=== PATIENT | female | born 1970 | race American Indian/Alaskan Native ===

== ENCOUNTER 2017-11-12 10:22 | Observation (INO) | payer BC ==
--- NOTE | 2017-11-09 09:52 | Anesthesia Consultation ---
Anesthesia Consult and Med Hx Date of service: 11/09/17 - Airway Anesthetic Teeth Evaluation: Good ROM Head & Neck: Adequate Mental/Hyoid Distance: Adequate Mallampati Class: Class II Intubation Access Assessment: Probably Good - Pulmonary Exam CTA: Yes - Cardiac Exam Cardiac Exam: RRR - Pre-Operative Health Status ASA Pre-Surgery Classification: ASA2 Proposed Anesthetic Plan: General Nerve Block: TAP - Pulmonary Hx Smoking: Yes (4 CIGS/DAY X 15 YRS) Hx Asthma: No Hx Sleep Apnea: No - Cardiovascular System Hx Hypertension: No - Central Nervous System Hx Seizures: No CVA: No Hx Psychiatric Problems: No - Hematic Hx Anemia: Yes - Other Systems Hx Alcohol Use: Yes (occas) Hx Cancer: No Hx Obesity: Yes
[2017-11-09 09:54] LABS: Basophils # (Auto) 0.1 K/mm3 (0.0-0.1); Basophils % (Auto) 1.1 % (0.0-1.8); Eosinophils % (Auto) 0.8 % (0.0-4.3); Hematocrit 36.7 % (30.3-42.9); Hemoglobin 12.6 gm/dl (10.1-14.3); Lymphocytes # (Auto) 2.1 K/mm3 (1.2-5.4); Lymphocytes % (Auto) 39.2 % (13.4-35.0); Mean Corpuscular HGB Conc 34 % (30-34); Mean Corpuscular Hemoglobin 30 pg (28-32); Mean Corpuscular Volume 88 fl (79-97); Monocytes # (Auto) 0.4 K/mm3 (0.0-0.8); Monocytes % (Auto) 6.8 % (0.0-7.3); Platelet Count 337 K/mm3 (140-440); Red Blood Count 4.19 M/mm3 (3.65-5.03); Red Cell Distribution Width 16.9 % (13.2-15.2)
[~2017-11-12 10:22] MED LIST: LACTATED RINGERS 1,000 ML IV SCH; NEURONTIN PO NR; PEPCID PO NR; SUBLIMAZE IV NR; VERSED IV NR
[2017-11-12] MEDS ORDERED: METHYLENE BLUE ONE (10:36)
[2017-11-12] MEDS ORDERED: NEOSPORIN GU IR ONE ×2 (10:36→14:06)
[2017-11-12] MEDS ORDERED: MARCAINE 0.25% INFILTRATI ONE (10:36)
[2017-11-12] MEDS ORDERED: GARAMYCIN 120 MG in NACL 0.9% 100 ML IV NR (11:15)
--- NOTE | 2017-11-12 11:15 | History and Physical Report ---
History of Present Illness Date of examination: 11/12/17 Chief complaint: Symptomatic uterine fibroids History of present illness: Pt is a 47yo BF LMP 10/30/17 presents for surgical evaluation and treatment of uterine fibroids. Pelvic u/s showed an enlarged uterus 10 x 8.7 x 6.5cm with 4 fibroids. Pt desires ovarian conservation and is therefore scheduled for Robotic Assisted Total Hysterectomy. 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 History: fibroids Social history: no significant social history, single Medications and Allergies Allergies Allergy/AdvReac Type Severity Reaction Status Date / Time Penicillins Allergy Hives Verified 11/02/17 13:50 Home Medications Medication Instructions Recorded Confirmed Last Taken Type Ibuprofen [Ibuprofen] 800 mg PO Q8H PRN 11/02/17 11/02/17 Unknown History Naproxen 500 mg PO Q12H PRN 11/02/17 11/02/17 Unknown History clonazePAM [ Klonopin] 0.5 mg PO BID PRN 11/02/17 11/02/17 Unknown History Active Meds: Active Medications Celecoxib (Celebrex) 200 mg PO PREOP NR Stop: 11/12/17 21:00 Famotidine (Pepcid) 20 mg PO PREOP NR Stop: 11/12/17 21:00 Fentanyl (Sublimaze) 100 mcg IV ONCE NR Stop: 11/12/17 21:00 Gabapentin (Neurontin) 600 mg PO PREOP NR Stop: 11/12/17 21:00 Lactated Ringer's (Lactated Ringers) 1,000 mls @ 75 mls/hr IV DIRECT DIDIER Midazolam HCl (Versed) 2 mg IV PREOP NR Stop: 11/12/17 23:59 Review of Systems All systems: negative - Vital Signs Vital signs: Vital Signs Temp Pulse Resp BP 97.6 F 80 16 132/84 11/09/17 09:30 11/09/17 09:30 11/09/17 09:30 11/09/17 09:30 Temp Pulse Resp BP Pulse Ox 97.6 F 80 16 132/84 11/09/17 09:30 11/09/17 09:30 11/09/17 09:30 11/09/17 09:30 - Physical Exam Breasts: Positive: deferred Cardiovascular: Regular rate Lungs: Positive: Clear to auscultation Abdomen: Positive: normal appearance Genitourinary (Female): Positive: normal external genitalia Vagina: Positive: normal moisture Uterus: Positive: enlarged Anus/Rectum: Positive: normal perianal skin Extremities: Positive: normal Results Result Diagrams: 11/09/17 09:35 All other labs normal. Ultrasound: report reviewed Assessment and Plan - Patient Problems (1) Uterine fibroid Onset Date: 11/12/17 Current Visit: Yes Status: Acute Qualifiers: Uterine leiomyoma location: intramural and submucous Qualified Code(s): D25.1 - Intramural leiomyoma of uterus; D25.0 - Submucous leiomyoma of uterus; D25.0 - Submucous leiomyoma of uterus Plan to address problem: A: Symptomatic uterine fibroids P: Admit for a Robotic Assisted Total Hysterectomy
--- NOTE | 2017-11-12 11:55 | Anesthesia Day of Surgery ---
Anesthesia Day of Surgery - Day of Surgery Patient Examined: Yes Patient H&P Reviewed: Yes Patient is NPO: Yes
[2017-11-12] MEDS ORDERED: CLEOCIN 600 MG/50 mL 600 MG/50 ML BAG IV NR (12:00)
[2017-11-12] MEDS ORDERED: DECADRON ONE ×2 (12:30→12:43)
[2017-11-12] MEDS ORDERED: ROBINUL ONE ×2 (12:30→15:00)
[2017-11-12] MEDS ORDERED: QUELICIN ONE (12:30)
[2017-11-12] MEDS ORDERED: ZOFRAN ONE (12:30)
[2017-11-12] MEDS ORDERED: SUBLIMAZE ONE ×2 (12:31→13:44)
[2017-11-12] MEDS ORDERED: DIPRIVAN 10 MG/ML IV ONE (12:31)
[2017-11-12] MEDS ORDERED: MARCAINE 0.5% 30 ML INFILTRATI ONE (12:43)
[2017-11-12] MEDS ORDERED: VERSED ONE (12:55)
[2017-11-12] MEDS ORDERED: NACL 0.9% 1000 ML 1,000 ML IV SCH (13:00)
[2017-11-12] MEDS ORDERED: NACL 0.9% IR ONE ×2 (14:08→14:09)
[2017-11-12] MEDS ORDERED: CLEOCIN 600 MG/50 mL 600 MG/50 ML BAG IV SCH (15:00)
[2017-11-12] MEDS ORDERED: TYLENOL PO PRN (15:00)
[2017-11-12] MEDS ORDERED: NEOSTIGMINE ONE (15:00)
[2017-11-12] MEDS ORDERED: D5LR 1,000 ML IV SCH (15:00)
[2017-11-12] MEDS ORDERED: GARAMYCIN/NS 80 MG/100 ML 100 ML IV SCH (15:00)
[2017-11-12] MEDS ORDERED: ZOFRAN IV PRN (15:00)
[2017-11-12] MEDS ORDERED: NARCAN 0.4 MG/1 ML IV PRN (15:00)
[2017-11-12] MEDS ORDERED: SODIUM CHLORIDE FLUSH SYRINGE 10 ML IV PRN (15:00)
[2017-11-12] MEDS ORDERED: NORCO 5/325 PO PRN (15:00)
[2017-11-12] MEDS ORDERED: MILK OF MAGNESIA PO PRN (15:00)
--- NOTE | 2017-11-12 15:23 | Operative Report ---
Operative Report Operative Report: Date of procedure: 11/12/2017 Pre-operative diagnosis: Symptomatic fibroid uterus Post-operative diagnosis: Same with extensive pelvic adhesions Procedure name(s): 1. Robotic-assisted total hysterectomy 2. Left salpingectomy 3. Lysis of extensive pelvic adhesions Surgeon: Nabeel Deluna MD Pharmacognosy Teacher: Chelsey Wong CSA Anesthesia: GARFIELD block followed by general endotracheal intubation by Dr. Padilla EBL: 50 mL's Findings: A 12-14 week size multi-myomatous uterus with omental adhesions to the anterior abdominal wall and to the uterine fundus. Normal left fallopian tube and ovary. Absent right fallopian tube and normal right ovary. Procedure: After the patient's first correctly identified she was prepped and draped in the usual sterile fashion and placed in the dorsolithotomy position. The bladder was first catheterized using Tran catheter and the speculum was placed in the vagina and the anterior lip of the cervix was grasped using a single-tooth tenaculum, and the large Vesicare cup was placed. The tenaculum and speculum was then removed from the vagina and attention was then turned to the abdomen. The skin knife was used to make a small incision approximately 5 cm above the umbilicus through which a 12 mm trocar was placed under direct visualization. After adequate amount of abdominal insufflation visualization of the pelvic organs found the uterus to be enlarged with extensive omental adhesions to the anterior abdominal wall to the uterine fundus, and the left fallopian tube was found to be normal and the ovaries were normal bilaterally. A right and left paramedian incision was made through which the 8 mm trochars were placed under direct visualization and a 5 mm trocar was placed in the right lower quadrant. The patient was then placed in steep Trendelenburg positioning and the robot was docked on the patient's left side. After all the robotic ports were connected and adequate functioning of the robotic arms were tested the surgeon then proceeded to the console to begin the hysterectomy. First the anterior abdominal wall adhesions were taken down using both sharp and blunt dissection, and the omental adhesions were taken down from the uterine fundus. Next the left round ligament was grasped, cauterized and cut, the left utero-ovarian ligaments were grasped, cauterized and cut, and the left fallopian tube also grasped, cauterized and cut along the mesosalpinx, thus freeing the left ovary from the left uterine sidewall. The same procedure was performed on the right, except the right fallopian tube was absent. The right round ligament was grasped, cauterized and cut, the right utero-ovarian ligaments were grasped, cauterized and cut thus freeing the right ovary from the right uterine sidewall. The bladder flap was taken down anteriorly and the uterine vessels were grasped, cauterized and cut bilaterally. The cardinal ligaments were sequentially grasped, cauterized and cut down to the level of the uterosacral ligaments. At this time the posterior colpotomy was performed over the Vcare cup, and the cervix was circumscribed beginning posteriorly and meeting anteriorly until the cervix was freed. The cervix and uterus was then removed through the vagina and sent to pathology. The vaginal cuff was then closed using 2-0 Vloc suture in a running fashion. Irrigation was then performed and after good hemostasis was achieved the procedure was considered complete. The Tisseel sealant was then sprayed across the vaginal cuff site, and after excellent hemostasis was assured Interceed was placed across the vaginal cuff site. All instruments were then removed from the abdominal cavity. And each incision was closed using 0 Vicryl suture in a figure-of- eight configuration on the fascia followed by 4-0 Monocryl suture in a sub- cuticular fashion on the skin. Each incision was also infiltrated using 0.5% Marcaine solution. The vaginal pack was removed. The patient tolerated the procedure well and was transported to the recovery room in stable condition.
[2017-11-12] MEDS: DILAUDID IV PRN ×2 (15:45→16:00)
[2017-11-12] MEDS: PERCOCET 5/325 PO PRN (16:25)
[2017-11-12] MEDS: GARAMYCIN/NS 80 MG/100 ML 100 ML IV SCH (20:27)
[2017-11-12] MEDS: TORADOL IV SCH (20:36)
[2017-11-12] MEDS: CLEOCIN 600 MG/50 mL 600 MG/50 ML BAG IV SCH (21:19)
[2017-11-12] MEDS ORDERED: COLACE PO SCH (22:00)
[2017-11-13] MEDS: TORADOL IV SCH ×3 (02:19→10:34)
[2017-11-13 02:58] LABS: Hematocrit 34.3 % (30.3-42.9); Hemoglobin 11.5 gm/dl (10.1-14.3)
[2017-11-13] MEDS: GARAMYCIN/NS 80 MG/100 ML 100 ML IV SCH (04:34)
[2017-11-13] MEDS: CLEOCIN 600 MG/50 mL 600 MG/50 ML BAG IV SCH (05:16)
[2017-11-13] MEDS: PERCOCET 5/325 PO PRN (08:49)
--- NOTE | 2017-11-13 09:54 | Progress Note ---
Assessment and Plan - Patient Problems (1) Uterine fibroid Onset Date: 11/12/17 Current Visit: Yes Status: Resolved Qualifiers: Uterine leiomyoma location: intramural and submucous Qualified Code(s): D25.1 - Intramural leiomyoma of uterus; D25.0 - Submucous leiomyoma of uterus; D25.0 - Submucous leiomyoma of uterus (2) Status post robot-assisted surgical procedure Onset Date: 11/13/17 Current Visit: Yes Status: Resolved Plan to address problem: A: S/P RATH - POD #1 Doing well P: May go home today. Subjective - Subjective Date of service: 11/13/17 Principal diagnosis: s/p RATH - POD #1 Interval history: Pt is s/p a Robotic Assisted Total Hysterectomy, and doing well. Pain is controlled, and she is tolerating a soft diet without nausea or vomiting. No flatus yet. Patient reports: appetite normal, voiding normally, pain well controlled, ambulating normally, no flatus, no nauseated Objective - Vital Signs Latest vital signs: Vital Signs Temp Pulse Resp BP BP Pulse Ox 11/13/17 08:49 20 11/13/17 00:18 98.8 F 103 H 20 125/67 96 11/12/17 20:41 99.0 F 109 H 22 130/77 99 11/12/17 17:53 97 11/12/17 17:10 97.3 F L 76 16 136/91 97 11/12/17 16:30 76 12 137/85 100 11/12/17 16:15 97.1 F L 75 12 137/85 100 11/12/17 16:00 73 11 L 133/77 100 11/12/17 15:45 73 12 120/70 100 11/12/17 15:35 86 12 127/83 100 11/12/17 15:30 83 10 L 124/63 100 11/12/17 15:25 88 12 118/56 100 11/12/17 15:20 80 11 L 117/76 100 11/12/17 15:15 97.4 F L 92 H 12 122/88 99 11/12/17 12:13 97.6 F 79 18 122/75 99 11/12/17 11:05 97.6 F 79 18 122/75 99 Intake and Output 11/12/17 11/13/17 11/13/17 22:59 06:59 14:59 Intake Total 1225 240 Output Total 2200 250 1000 Balance - Intake: IV 1025 CLEOCIN 600 MG/50 mL 600 50 mg In 50 ml @ 100 mls/hr IV Q8H [facility] Rx#:[id number] Garamycin/Ns 80 mg/100 ml 100 100 ml @ 200 mls/hr IV Q8H [facility] Rx#:[id number] Right Antecubital 125 Oral 120 Intake, Free Water 200 120 Output: Urine 2200 250 1000 Indwelling Catheter 1539 055 8470 Uretheral (Tran) 500 Other: Total, Intake Amount 120 Total, Output Amount 228 490 7647 Voiding Method Indwelling Catheter - Exam Cardiovascular: Present: Regular rate Lungs: Present: Clear to auscultation Abdomen: Present: normal appearance, soft Extremities: Present: normal Incision: Present: normal, dry, intact - Labs Labs: Laboratory Tests 11/09/17 11/09/17 11/12/17 09:35 09:35 11:45 WBC 5.4 RBC 4.19 Hgb 12.6 Hct 36.7 MCV 88 MCH 30 MCHC 34 RDW 16.9 H Plt Count 337 Lymph % (Auto) 39.2 H [place] % (Auto) 6.8 Eos % (Auto) 0.8 Baso % (Auto) 1.1 Lymph # 2.1 [place] # 0.4 Eos # 0.0 Baso # 0.1 Seg Neutrophils % 52.1 Seg Neutrophils # 2.8 HCG, Qual Negative Blood Type O POSITIVE Antibody Screen Negative 11/13/17 02:36 WBC RBC Hgb 11.5 Hct 34.3 MCV MCH MCHC RDW Plt Count Lymph % (Auto) [place] % (Auto) Eos % (Auto) Baso % (Auto) Lymph # [place] # Eos # Baso # Seg Neutrophils % Seg Neutrophils # HCG, Qual Blood Type Antibody Screen
--- NOTE | 2017-11-13 10:04 | Discharge Summary ---
Providers - Providers Date of Admission: 11/12/17 15:00 Date of discharge: 11/13/17 Attending physician: JENNA HOUSER Primary care physician: KADIE GARCIA Hospitalization Reason for admission: other (symptomatic uterine fibroids) Procedure: other (Robotic Assisted Total Hysterectomy with Left salpingectomy) Incision: normal, dry, intact Other procedures: none complications: none Discharge diagnosis: other (s/p RATH with left salpingectomy) Hospital course: Pt is a 47yo BF LMP 10/30/17 who presented for surgical evaluation and treatment of uterine fibroids. She underwent an uncomplicated Robotic Assisted Total Hysterectomy with left salpingectomy and lysis of extensive pelvic adhesions, and tolerated the procedure well. By POD #1 she was tolerating a soft diet without nausea or vomiting, ambulating and voiding without difficulty. She will therefore be discharged to home this afternoon after lunch if she remains stable. Condition at discharge: Good Disposition: DC-01 TO HOME OR SELFCARE - Discharge Diagnoses (1) Uterine fibroid Status: Resolved Qualifiers: Uterine leiomyoma location: intramural and submucous Qualified Code(s): D25.1 - Intramural leiomyoma of uterus; D25.0 - Submucous leiomyoma of uterus; D25.0 - Submucous leiomyoma of uterus (2) Status post robot-assisted surgical procedure Status: Resolved Plan - Discharge Medications Prescriptions: HYDROcodone/APAP 5-325 [Sandwich 5-325 mg TAB] 1 each PO Q6HR PRN #30 tablet PRN Reason: Pain, Moderate (4-6) Ibuprofen 800 mg PO Q8H PRN #30 tablet PRN Reason: Pain - Provider Discharge Summary Activity: routine, no sex for 6 weeks, no heavy lifting 4 weeks, no strenuous exercise Diet: routine Instructions: routine Additional instructions: [] Smoking cessation referral if applicable(refer to patient education folder for contact #) [] Refer to [facility] Booklet Call your doctor immediately for: * Fever > 100.5 * Heavy vaginal bleeding ( >1 pad per hour) * Severe persistent headache * Shortness of breath * Reddened, hot, painful area to leg or breast * Drainage or odor from incision. * Keep incision clean and dry at all times and follow doctor's instructions regarding bathing/showering - Follow up plan Follow up: KADIE GARCIA MD [Primary Care Provider] - 7 Days JENNA HOUSER MD [Staff Physician] - 14 Days
[2017-11-13 10:12] VITALS: BP 105/64
== END 2017-11-13 15:00 | disposition home or self-care (01) ==
LOC: OR 10:22 → INTOOBSV 15:00 → OB 15:00
PROVIDERS: ADMIT Obstetrics & Gynecology; ATTEND Obstetrics & Gynecology
DX: D25.0 Submucous leiomyoma of uterus (principal); N73.6 Female pelvic peritoneal adhesions (postinfective); F17.200 Nicotine dependence, unspecified, uncomplicated; E66.9 Obesity, unspecified; Z88.0 Allergy status to penicillin; Z79.899 Other long term (current) drug therapy; Z72.89 Other problems related to lifestyle; Z68.34 Body mass index [BMI] 34.0-34.9, adult
CPT/HCPCS: 36415; 58554; 84703; 85014; 85018; 85025; 86850; 86900; 86901; 88307; 96365; 96367; 96372; 96375; A4217; C1765; C9250; G0378; J0330; J1100; J1170; J1580; J1885; J2250; J2405; J2704; J2710; J3010; J7030; J7120; J7121; S2900; Q9968